=== PATIENT | male | born 1955 | race Caucasian/White ===

== ENCOUNTER 2022-05-29 08:56 | Outpatient (RCR) | payer MEDICARE, SELFPAY ==
--- NOTE | 2022-05-29 10:08 | PTOPEVAL1 ---
Assessment and note entered by JT File, PT Evaluation Information Assessment Status Evaluation Diagnosis L knee arthroscopy Onset 03/01/22 Subjective Information patient reports he injured his L knee back on 02/13. he reports he was lifting a box and his knee moved in a different direction than his body. 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 he reports he had a meniscus tear that was removed via scope on . he reports since surgery it has felt too good to be true. he reports he was on post op norco yesterday after surgery. he reports he has since stopped and is only on tylenol. Reported Pain Level Pain Score 1: Self Report Assessment PT Clinical Summary mr. campos presents to skilled PT 1 day post op L knee arthroscopy. he presents this date with post operative swelling, antaligic gait, decreased strength, and decreased rom compared to the R knee . he was educated this date in exercises for quad strengt/contraction and knee rom. he was given and HEP and education on plan moving forward for continued skilled PT. patient is an excellent candidate for skilled PT, and will likely return to prior level activities without limitations in 2 -3 weeks. Plan of Care Interventions Gait Training,Hot Pack/Cold Pack,Intermittent Compression,Manual Therapy,Neuro Re-education, Patient/Caregiver Educati,Therapeutic Activities, Therapeutic Exercise PT Services Indicated Yes Treatment Frequency and 2x weekly for 6 visits Duration These treatments will address the objective and functional deficits as defined above. The patient will be advanced safely and appropriately in order for the patient to progress towards his/her prior level of function. Additional exercises will be introduced and as well as a comprehensive home exercise program upon discharge, if needed, ?to ensure carryover of functional gains achieved in the clinic. This treatment plan has been reviewed and agreement upon by the patient.
== END 2022-06-22 14:42 | disposition home or self-care (01) ==
LOC: CHSPT 08:56
DX: Z98.890 Other specified postprocedural states (principal)
CPT/HCPCS: 97014; 97016; 97110; 97161; 97530; G0283

== ENCOUNTER 2022-10-26 13:29 | Emergency (ER) | payer MEDICARE, SELFPAY ==
[2022-10-26] VITALS (57 sets, daily range): BP systolic 98–175; BP diastolic 75–100; PULSE 90–164; RESP 10–21; TEMP 36.5–36.7; O2SAT 87–100
--- NOTE | ~2022-10-26 | XR_ITS ---
EXAMINATION: XR chest 1V portable INDICATION: Chest pain TECHNIQUE: Portable AP chest at 1413 hours COMPARISON: 12/05/2018 FINDINGS: There is mild chronic atelectasis of the lung bases. No pleural effusion or pneumothorax. T he cardiomediastinal silhouette is normal. There is moderate to severe osteoarthritis of the right gl enohumeral joint. IMPRESSION: 1. No acute cardiopulmonary abnormality. Reviewed, dictated and finalized at location B.
--- NOTE | 2022-10-26 13:32 | ECG_ITS ---
Measurements Intervals [place] Rate: 134 P: [place]: 0 QRS: 26 QRSD: 94 T: 55 QT: 299 QTc: 448 Interpretive Statements ATRIAL FLUTTER/TACHYCARDIA WITH RAPID VENTRICULAR RESPONSE WITH ABERRANT CONDUCTION OR VENTRICULAR PREMATURE COMPLEXES NONSPECIFIC ST & T-WAVE ABNORMALITY ABNORMAL RHYTHM ECG NO PREVIOUS ECG AVAILABLE FOR COMPARISON Electronically Signed On 10-28-2022 13:56:52 CDT by Guerrero Lui M.D.
--- NOTE | 2022-10-26 13:45 | ED.GENADULT ---
HPI - General Adult General Chief complaint: Chest Pain Stated complaint: CHEST PAIN Time Seen by Provider: 10/26/22 13:32 History of Present Illness HPI narrative: Guillermo is a 67M with a PMH of hypothyroidism, asthma and rosacea that presented to the ED after an episode of chest pain. He was working in the yard very hard when he had an episode of chest pain and dyspnea. He took an aspirin and his inhaler. It did improve some with rest but he still had a little chest pain and dizziness so he came in. There was no nausea or vomiting or syncope. Related Data Home Medications Medication Instructions Recorded Confirmed colchicine 0.6 mg capsule 0.6 mg PO BID 10/26/22 10/26/22 (Mitigare) fluticasone propionate 110 1 puff inhalation BID 10/26/22 10/26/22 mcg/actuation HFA aerosol inhaler (Flovent HFA) levothyroxine 175 mcg tablet 175 mcg PO DAILY 10/26/22 10/26/22 montelukast 10 mg tablet 10 mg PO DAILY 10/26/22 10/26/22 Allergies Allergy/AdvReac Type Severity Reaction Status Date / Time erythromycin base Allergy Rash Verified 10/26/22 13:42 Review of Systems Review of Systems: All systems reviewed & are unremarkable except as noted in HPI and below PMFSH Family History Family History (Updated 10/26/22 @ 19:50 by Mello Chaudhry RN) Father Diabetes mellitus Mother Hypertension Social History Social History Smoking status: Never smoker Alcohol intake: current Substance use: never Lack of Transportation: No Lack of Food: Never True Current Housing: I Have Housing Concerned About Future Housing: No Difficulty Paying Gas/Electric Bills: No Difficulty Paying for Meds: No Currently Unemployed: No Education: High School Diploma/GED Difficulty w/ Childcare or Family Care: No Spiritual care concerns: No Exam Const: General: healthy appearing, no acute distress and alert Nutritional Appearance: well nourished Orientation/consciousness: patient oriented x3 HENMT: Head: normal to inspection Ears: external ears normal Eyes: Conjunctivae: conjunctivae normal Pupils: Equal, round and reactive pupils present Neck: Neck: normal visual inspection Chest: Chest palpation & inspection: normal inspection of the chest Resp: Effort & Inspection: normal respiratory effort Auscultation: clear to auscultation bilaterally Cardio: Rate: tachycardic Rhythm: abnormal rhythm irregularly irregular GI: Inspection: non-distended Auscultation: normal bowel sounds Skin: General skin exam: normal color Rashes: no rashes Neuro: General: patient oriented x3 and moves all extremities Cranial nerves: Yes Nystagmus not present Extrem: General: normal to inspection Psych: Mental Status: mental status grossly normal Course Course Emergency Course: Ordered EKG, CXR, and labs. EKG showed atrial flutter with a rate of 134, normal axis, PVCs and non-specific and flipped T waves in III EXAMINATION: XR chest 1V portable INDICATION: Chest pain TECHNIQUE: Portable AP chest at 1413 hours COMPARISON: 12/05/2018 FINDINGS: There is mild chronic atelectasis of the lung bases. No pleural effusion or pneumothorax. The cardiomediastinal silhouette is normal. There is moderate to severe osteoarthritis of the right glenohumeral joint. IMPRESSION: 1. No acute cardiopulmonary abnormality. He was started on a diltiazem drip and it was titrated up to 15 with no effect so digoxin was started. Digoxin also brought little effect. [facility] was contacted for transfer to a higher level of care and cardiology consult Vital Signs Vital signs: Vital Signs Temperature 97.9 F 10/26/22 13:30 Pulse Rate 144 H 10/26/22 13:30 Respiratory Rate 18 10/26/22 13:30 Blood Pressure 122/87 10/26/22 13:30 Pulse Oximetry 98 10/26/22 13:30 Oxygen Delivery Room Air 10/26/22 13:30 Temperature 97.7 F 10/26/22 18:30 Pulse Rate 98 10/26/22 18
[2022-10-26 13:48] LABS: Basophils Absolute Auto 0.07 K/mm3 (0.00-0.10); Basophils Percent Auto 0.5 % (0.0-1.0); Eosinophils Absolute Auto 0.14 K/mm3 (0.02-0.50); Eosinophils Percent Auto 1.1 % (1.0-6.0); Hematocrit 47.6 % (37.0-46.0); Hemoglobin 16.1 g/dL (12.4-15.3); Immature Granulocyte Absolute 0.11 K/mm3 (0.00-0.00); Immature Granulocyte Percent A 0.9 % (0.0-0.0); Lymphocytes Absolute Auto 2.56 K/mm3 (1.10-4.50); Lymphocytes Percent Auto 19.8 % (18.0-42.0); Mean Corpuscular HGB Conc 33.8 g/dL (32.0-36.0); Mean Corpuscular Hemoglobin 31.2 pg (27.0-31.0); Mean Corpuscular Volume 92.2 fL (78.0-102.0); Mean Platelet Volume 12.3 fl (8.7-11.0); Monocytes Absolute Auto 1.37 K/mm3 (0.10-0.90); Monocytes Percent Auto 10.6 % (2.0-11.0); Neutrophils Absolute Auto 8.7 K/mm3 (1.7-7.2); Neutrophils Percent Auto 67.1 % (50.0-70.0); Platelet Count Result 186 K/mm3 (150-420); Red Blood Count 5.16 M/mm3 (4.70-6.10); Red Cell Distribution Width 13.2 % (11.6-14.4); White Blood Count 12.9 K/mm3 (4.8-10.8)
[2022-10-26] MEDS: dilTIAZem HCl INJ 25 MG/5 ML VIAL 10 MG IV PUSH (14:00)
[2022-10-26 14:01] LABS: INR 0.9; Prothrombin Time 10.4 Seconds (9.50-12.10)
[2022-10-26] MEDS: dilTIAZem 100 MG/100 ML 100 MG/100 ML BAG IV CONT (14:02)
[2022-10-26 14:09] LABS: Magnesium 1.7 mg/dL (1.8-2.4)
[2022-10-26 14:10] LABS: Troponin I 28.8 ng/L (0.00-60.4)
[2022-10-26 14:14] LABS: Alanine Aminotransferase 50 U/L (16-63); Albumin Level 3.7 g/dL (3.4-5.0); Alkaline Phosphatase 70 U/L (46-116); Anion Gap 11 mmol/L (8-16); Aspartate Amino Transferase 36 U/L (15-37); Bilirubin,Total 1.6 mg/dL (0.00-1.00); Blood Urea Nitrogen 14 mg/dL (7-18); Calcium 8.9 mg/dL (8.5-10.1); Carbon Dioxide 26 mmol/L (21-32); Chloride 107 mmol/L (98-108); Estimated CRCL calculation 66 ml/min; Estimated Glomerular Filt Rate 57; Glucose 149 mg/dL (70-99); NT Pro B Type Natriuretic Pept 238 pg/mL (0-125); Osmolality Calculated 301 mOsm/kg (285-295); Potassium 3.3 mmol/L (3.5-5.1); Sodium 144 mmol/L (136-145); Total Protein 7.3 g/dL (6.4-8.2)
[2022-10-26 14:16] LABS: Thyroid Stimulating Hormone 2.46 uIU/mL (0.36-3.74)
[2022-10-26] MEDS: MAGNESIUM SULF 2 GM/WATER 50ML 2 GM/50 ML BAG IVPB (15:05)
[2022-10-26] MEDS: DIGOXIN INJ 250 MCG/ML 2 ML AMP (*BKC) 500 MCG IV PUSH (15:41)
== END 2022-10-26 18:43 | disposition short-term general hospital (02) ==
PROVIDERS: Emergency Provider Family Medicine; PCP Internal Medicine
DX: I48.91 Unspecified atrial fibrillation (principal); R06.00 Dyspnea, unspecified; E03.9 Hypothyroidism, unspecified; J45.909 Unspecified asthma, uncomplicated
CPT/HCPCS: 36415; 71045; 80053; 83735; 83880; 84443; 84484; 85025; 85610; 93005; 96365; 96366; 96368; 96375; 99285; J1160; J3475

== ENCOUNTER 2022-10-26 20:53 | Inpatient (IN) | payer MEDICARE, SELFPAY ==
[2022-10-26 19:33] VITALS: BMI 34.6
--- NOTE | 2022-10-26 19:38 | ADMGEN ---
This patient, Yash Feldman, was admitted to IMU Room 201-01. Patient/family oriented to hospital policies and general routines including ID bracelet, bed and alarms, visiting hours, pain management, procedures, bathroom and other care routines, personal items, smoking policy, room service/diet, and visiting hours. Information on how to activate the Rapid Response Team has been discussed. Patient/Family are encouraged to report perceived risks to care and to ask questions if they do not understand what they are told or what they should do.
[2022-10-26 19:43] VITALS: BP 115/79; PULSE 136; RESP 22; TEMP 36.7; O2SAT 99
[2022-10-26 19:45] VITALS: BMI 31.9
[2022-10-26 20:00] VITALS: PULSE 102
[2022-10-26 20:17] VITALS: BP 115/79; PULSE 137
[2022-10-26] MEDS: dilTIAZem 100 MG/100 ML 100 MG/100 ML BAG IV CONT (20:17)
[2022-10-26] MEDS: ACETAMINOPHEN 325 MG TABLET 650 MG PO (21:09)
[2022-10-26 21:20] VITALS: PULSE 120
--- NOTE | 2022-10-26 21:45 | PM.IMHP ---
H&P: HPI History of Present Illness Date/Time: 10/26/22 21:45 Chief Complaint: Chest pain Narrative: This is a 67-year-old male patient with a history of hypothyroidism asthma and rosacea. The patient went to [facility] with complaints of chest pain. 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 The patient had an episode of chest pain and dyspnea. The patient took an aspirin and used his inhaler. The chest pain did not improve with rest and he still had some chest pain and dizziness as well. He denies any nausea vomiting or diarrhea. The pain did not radiate anywhere. The patient has no previous heart history or any arrhythmias. His white count was noted to be 12.9. H&H is 16.1 and 47.6. His potassium was found to be 3.3. Glucose 149. Magnesium 1.7. Troponin x2 was nonreactive. EKG was read as atrial flutter with RVR heart rate 130s. The patient was started on a Cardizem drip. The patient had been up to Cardizem drip up to 15 and was also given digoxin. Chest x-ray was read as no acute cardiopulmonary abnormality. The patient is being admitted to observation status on the date of service of 10/26/2022. Review of Systems Review of Systems: All systems reviewed & are unremarkable except as noted in HPI and below Constitutional: Constitutional: Reports as per HPI and Reports no additional constitutional complaints Eyes: Eyes: Reports as per HPI and Reports no additional eye complaints ENT: Reports system reviewed and no additional complaints, except as documented and Reports Normal hearing present Cardiovascular: Cardiovascular: Reports no additional cardiovascular complaints Respiratory: Respiratory: Reports no additional respiratory complaints and Reports no additional respiratory complaints Gastrointestinal: Gastrointestinal: Reports as per HPI and Reports no additional gastrointestinal complaints Musculoskeletal: Musculoskeletal: Reports no additional musculoskeletal complaints Integumentary/Breasts: Skin/Breast: Reports system reviewed and no additional complaints, except as docu and Reports as per HPI Neurologic: Reports system reviewed and no additional complaints, except as documented, Reports as per HPI and Reports Normal hearing present Psychiatric: Psychiatric: Reports no additional psychiatric complaints and Reports as per HPI Endocrine: Endocrine: Reports no additional endocrine complaints Hematologic/Lymphatic: Hematologic/Lymphatic: Reports no additional hematologic/lymphatic complaints Allergic/Immunologic: Allergic/Immunologic: Reports no additional allergic/immunologic complaints [facility] Past Medical History Medical History (Updated 10/27/22 @ 01:11 by Eun Randhawa NP) Asthma Hypothyroidism Surgical History Surgical History (Updated 10/27/22 @ 01:05 by Eun Randhawa NP) H/O Achilles tendon repair Left H/O knee surgery Left H/O shoulder surgery Right Family History Family History (Updated 10/27/22 @ 01:06 by Eun Randhawa NP) Father Diabetes mellitus Liver cancer Mother Hypertension Social History Social History (Updated 10/27/22 @ 01:07 by Eun Randhawa NP) Social History: The patient has a significant other. He has 1 child. 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 Code status full code Smoking status: Never smoker Alcohol intake: current Substance use: never Lack of Transportation: No Lack of Food: Never True Current Housing: I Have Housing Concerned About Future Housing: No Difficulty Paying Gas/Electric Bills: No Difficulty Paying for Meds: No Currently Unemployed: No Education: High School Diploma/GED Difficulty w/ Childcare or Family Care: No Spiritual care concerns: No Meds Home Medications and Allergies Home Medications Medication Instructions Recorded Confirmed Type colchicine 0.6 mg capsule 0.6 mg PO BID 10/26/22 10/26/22 His
[2022-10-26 21:58] LABS: Troponin I 0.032 ng/mL (0.000-0.034)
[2022-10-26 22:00] VITALS: PULSE 112
[2022-10-26 22:12] VITALS: BP 104/57
[2022-10-27] VITALS (20 sets, daily range): BP systolic 96–113; BP diastolic 59–78; PULSE 59–140; RESP 20–22; TEMP 36.2–37.1; O2SAT 96–100
--- NOTE | 2022-10-27 | ECHO_ITS ---
Patient Info Name: Yash Feldman Age: 67 years : 1955 Gender: Male Ht: 73 in Wt: 255 lbs BSA: 2.48 m2 HR: 97 bpm BP: 105 / 72 mmHg Heart Rhythm: Atrial Fibrillation, Tachycardia Technical Quality: Fair Exam Date: 10/27/2022 11:04 AM Exam Location: [facility] Card Pulmonary Patient Status: Inpatient Admit Date: 10/27/2022 Staff Ordering Physician: Eun Randhawa NP Machine Stuffer Automatic: Olya Herrera RDCS Attending Provider: Heather Ding DO Referring Physician: Sydnee SCHUMACHER; Exam Type: CA echo dop color flow w con Study Info Indications - new onset afib Complete two-dimensional, color flow and Doppler transthoracic echocardiogram is performed with contrast to opacify the left ventricle and to improve the deliniation of the left ventricle endocardial borders. Contrast/Agitated Saline Contrast/Ag. Saline: Definity Amount: 3.00 ml Administered By: Olya Herrera RDCS Existing IV Access: Yes IV Access Condition: patent with no signs of infiltration Summary 1. Left ventricular chamber dimension is normal. 2. Left ventricular systolic function is normal, estimated at 50-55%. 3. Right ventricular systolic function is normal. 4. There is moderate aortic valve calcification. 5. There is mild to moderate aortic valve stenosis with a peak velocity of 287.05 cm/s, mean gradient of 17 mmHg, and aortic valve area of 1.15 cm2. 6. There is mild aortic valve regurgitation. 7. There is mild tricuspid valve regurgitation. 8. The aortic root size at the sinus of Valsalva is dilated. Left Ventricle Left ventricular chamber dimension is normal. Left ventricular systolic function is normal, estimated at 50-55%. Right Ventricle Right ventricular chamber dimension is normal. Right ventricular systolic function is normal. Left Atria Left atrial chamber dimension is normal. Right Atria Right atrial chamber dimension is normal. Atrial Septum Intact interatrial septum visualized by color flow imaging. Aortic Valve The aortic valve is not well visualized. There is mild to moderate aortic valve stenosis with a peak velocity of 287.05 cm/s, mean gradient of 17 mmHg, and aortic valve area of 1.15 cm2. There is mild aortic valve regurgitation. There is moderate aortic valve calcification. Pulmonic Valve The pulmonic valve is not well visualized. Mitral Valve There is no mitral valve stenosis. There is trace mitral valve regurgitation. Tricuspid Valve There is mild tricuspid valve regurgitation. Pericardium/Pleural The pericardium appears epicardial fat pad. There is trivial pericardial effusion. Aorta The aortic root size at the sinus of Valsalva is dilated. Left Ventricular Outflow Tract Name Value Normal LVOT 2D LVOT Diameter 2.04 cm LVOT Doppler LVOT Peak Gradient 4 mmHg LVOT Mean Gradient 2 mmHg LVOT VTI 17.57 cm LVOT VTI/AV VTI Ratio 0.35 LVOT Stroke Volume 57.63 ml LVOT CO
[2022-10-27 02:03] LABS: Troponin I 0.025 ng/mL (0.000-0.034)
[2022-10-27] MEDS: ENOXAPARIN 120 MG/0.8 ML SYRINGE 116 MG SUB-Q ×2 (02:12→09:15)
[2022-10-27 03:20] LABS: Basophils Absolute Auto 0.1 K/mm3 (0.0-0.1); Basophils Percent Auto 0.6 % (0.2-1.2); Eosinophils Absolute Auto 0.2 K/mm3 (0-0.3); Eosinophils Percent Auto 1.8 % (0-4.4); Hematocrit 46.6 % (42.0-52.0); Hemoglobin 15.8 g/dL (14.0-18.0); Immature Granulocyte Absolute 0.08 K/mm3 (0.00-0.031); Immature Granulocyte Percent A 0.7 % (0-0.5); Lymphocytes Absolute Auto 2.98 K/mm3 (0.9-3.2); Mean Corpuscular HGB Conc 33.9 g/dl (32-36); Mean Corpuscular Hemoglobin 31.4 pg (26-34); Mean Corpuscular Volume 92.6 fl (80-100); Mean Platelet Volume 11.8 fl (7.4-10.4); Monocytes Absolute Auto 1.4 K/mm3 (0.1-0.6); Monocytes Percent Auto 12.3 % (2.6-8.5); Neutrophils Absolute Auto 6.3 K/mm3 (1.3-6.7); Neutrophils Percent Auto 57.6 % (45.5-73.1); Platelet Count Result 190 k/mm3 (150-375); Red Blood Count 5.03 M/mm3 (4.6-6.20); Red Cell Distribution Width 13.7 % (11.5-14.5)
[2022-10-27 03:44] LABS: Alanine Aminotransferase 37 U/L (6-50); Albumin Level 3.7 g/dL (3.5-5.1); Alkaline Phosphatase 54 U/L (38-126); Anion Gap 6 mmol/L (8-16); Aspartate Amino Transferase 37 U/L (17-59); Bilirubin,Total 2.2 mg/dL (0.2-1.3); Blood Urea Nitrogen 14 mg/dL (9-20); Calcium 8.3 mg/dL (8.4-10.2); Carbon Dioxide 27 mmol/L (22-30); Chloride 106 mmol/L (98-107); Estimated CRCL calculation 109 ml/min; Estimated Glomerular Filt Rate > 60; Glucose 109 mg/dL (65-110); Magnesium 2.1 mg/dL (1.6-2.3); Potassium 3.6 mmol/L (3.4-5.0); Sodium 139 mmol/L (137-145)
[2022-10-27 03:46] LABS: Troponin I 0.021 ng/mL (0.000-0.034)
[2022-10-27] MEDS: dilTIAZem 100 MG/100 ML 100 MG/100 ML BAG 10 MG IV CONT (05:56)
[2022-10-27] MEDS: ACETAMINOPHEN 325 MG TABLET 650 MG PO (05:57)
--- NOTE | 2022-10-27 07:59 | PCRCNOTE ---
Patient is scheduled Flovent inhaler Q12 and does not wish to be scheduled. Refused 0800 inhaler, RN notified
[2022-10-27] MEDS: POTASSIUM CHLORIDE 20 MEQ TABLET 40 MEQ PO (09:14)
[2022-10-27] MEDS: PERFLUTREN LIPID MICROSPHERES 1.5 ML VIAL DILUTED TO 10 ML TOTAL VOLUME IV PUSH (11:46)
--- NOTE | 2022-10-27 11:46 | IVDEFINITY ---
Prior to administration of IV Definity the patient was educated on the risks and benefits of the imaging enhancing agent including potential adverse side effects. The patient verbalized understanding. Allergies were verified. No exclusion criteria were identified and at least one of the following inclusion criteria were met: 1) physician request, 2) patient technically difficult to image (per the [place] [employer]chocardi[employer] guidelines of two or more segments not discernable within the apical view), or 3) questionable left ventricular function. ?
--- NOTE | 2022-10-27 13:38 | PM.CNCAR ---
Assessment and Plan Assessment and plan (1) Atrial flutter: Code(s): I48.92 - Unspecified atrial flutter Status: Acute Assessment and Plan: Will stop Diltazem drip and switch to PO Metoprolol. TSH normal. Discussed with patient regarding the treatment options and recommended SALVADOR/DCCV. Patient agreeable to SALVADOR/DCCV. Will plan for SALVADOR/DCCV on 10/28. Patient to be NPO at midnight. Will switch his Lovenox to Eliquis. Will need an outpatient sleep study. Will have patient follow up with us in clinic after hospital discharge. [id number] is 1 for his age. He will not require long-term anticoagulation for stroke prophylaxis, but will need to remain on anticoagulation for 30 days following cardioversion. (2) Hypothyroidism: Code(s): E03.9 - Hypothyroidism, unspecified Status: Acute Assessment and Plan: TSH normal. History of Present Illness History of Present Illness Consult date/time: 10/27/22 13:38 Requesting physician: Eun Randhawa NP Consult reason: Other (Atrial flutter) Reason For Visit: Atrial Flutter Narrative: We are consulted for atrial flutter with RVR. This is a 67-year-old male with a history of hypothyroidism, asthma, and rosacea who presented with chest pain and shortness of breath while doing some heavy lifting. EKG showed atrial flutter with RVR. Troponins negative. Patient sent from [facility] to here for further evaluation. Patient was started on Cardizem drip on admission along with dose of Digoxin however has remained in atrial flutter/fibrillation. No prior cardiac history. No history of hypertension, diabetes. Review of Systems Review of Systems: All systems reviewed & are unremarkable except as noted in HPI and below (HPI) FORMERLY [facility], [facility] Past Medical History Medical History Asthma Hypothyroidism Surgical History Surgical History H/O Achilles tendon repair Left H/O knee surgery Left H/O shoulder surgery Right Family History Family History Father Diabetes mellitus Liver cancer Mother Hypertension Social History Social History Social History: The patient has a significant other. He has 1 child. 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 status full code Smoking status: Never smoker Alcohol intake: current Substance use: never Lack of Transportation: No Lack of Food: Never True Current Housing: I Have Housing Concerned About Future Housing: No Difficulty Paying Gas/Electric Bills: No Difficulty Paying for Meds: No Currently Unemployed: No Education: High School Diploma/GED Difficulty w/ Childcare or Family Care: No Spiritual care concerns: No Meds Home Medications and Allergies Home Medications Medication Instructions Recorded Confirmed Type colchicine 0.6 mg capsule 0.6 mg PO BID 10/26/22 10/26/22 History (Mitigare) fluticasone propionate 110 1 puff inhalation BID 10/26/22 10/26/22 History mcg/actuation HFA aerosol inhaler (Flovent HFA) levothyroxine 175 mcg tablet 175 mcg PO DAILY 10/26/22 10/26/22 History montelukast 10 mg tablet 10 mg PO DAILY 10/26/22 10/26/22 History Allergies Allergy/AdvReac Type Severity Reaction Status Date / Time erythromycin base Allergy Rash Verified 10/26/22 13:42 Vital Signs Vital Signs - 24 hr 10/26/22 19:43 10/26/22 20:17 10/26/22 22:12 Temperature 36.7 C Pulse Rate 136 H 137 H Respiratory Rate 22 H Blood Pressure 115/79 115/79 104/57 L Pulse Oximetry 99 Oxygen Delivery 10/26/22 20:00 10/26/22 20:00 10/26/22 22:00 Temperature Pulse Rate 102 H 112 H Respiratory Rate Blood Pressure Pulse Oximetry Oxygen Delivery Room Air 10/26/22 21:20 10/27/22 00:00 10/27/22 00:00 Temp
--- NOTE | 2022-10-27 14:19 | PM.IMPN ---
Progress Note: A&P Assessment and Plan (1) Atrial flutter: Code(s): I48.92 - Unspecified atrial flutter Status: Acute Assessment and Plan: Cardiology consult greatly be appreciated. An echo has been ordered Patient is currently on a Cardizem drip. Patient's blood pressure is soft. He was given digoxin x1 at [facility]. I am not able to give metoprolol at this time is his blood pressure is soft. Patient's heart rate appears to be in the 80s now. Initially was in the 130. Subcu Lovenox has been ordered although it appears to be a large amount may consider subcu heparin. Troponins have been negative so far. Check magnesium level Check thyroid level 10/27/2022 interval history: 67-year-old male presented with a chest pain is found to have atrial fibrillation with RVR patient was started on diltiazem drip seen by cardiology rate and rhythms are not tender controlled recommended SALVADOR guided cardioversion scheduled for tomorrow, patient is clinically stable will continue to monitor and further recommendation to follow. (2) Asthma: Code(s): J45.909 - Unspecified asthma, uncomplicated Status: Acute Assessment and Plan: Continue with Singulair. (3) Hypothyroidism: Code(s): E03.9 - Hypothyroidism, unspecified Status: Acute Assessment and Plan: Check thyroid level continue with levothyroxine. Subjective Date/time seen: 10/27/22 14:19 Chest pain HPI-Narrative: This is a 67-year-old male patient with a history of hypothyroidism asthma and rosacea.? The patient went to [facility] with complaints of chest pain.? 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 The patient had an episode of chest pain and dyspnea.? The patient took an aspirin and used his inhaler.? The chest pain did not improve with rest and he still had some chest pain and dizziness as well.? He denies any nausea vomiting or diarrhea.? The pain did not radiate anywhere.? The patient has no previous heart history or any arrhythmias.? His white count was noted to be 12.9.? H&H is 16.1 and 47.6.? His potassium was found to be 3.3.? Glucose 149.? Magnesium 1.7.? Troponin x2 was nonreactive.? EKG was read as atrial flutter with RVR heart rate 130s.? The patient was started on a Cardizem drip.? The patient had been up to Cardizem drip up to 15 and was also given digoxin.? Chest x-ray was read as no acute cardiopulmonary abnormality.? The patient is being admitted to observation status on the date of service of 10/26/2022. 10/27/2022 interval history: 67-year-old male presented with a chest pain is found to have atrial fibrillation with RVR patient was started on diltiazem drip seen by cardiology rate and rhythms are not tender controlled recommended SALVADOR guided cardioversion scheduled for tomorrow, patient is clinically stable will continue to monitor and further recommendation to follow. Review of Systems Review of Systems: All systems reviewed & are unremarkable except as noted in HPI and below Exam Narrative: Patient is comfortable, NAD HEENT: eyes are clear and none icteric LUNGS: Normal respiratory effort HEART: Irregularly irregular ABD: Distended Lower extremities: no edema SKIN: nonjaundiced Neuro: grossly intact. Objective Data Vital Signs Vital Signs: Vital Signs - 24 hr 10/26/22 19:43 10/26/22 20:17 10/26/22 22:12 Temperature 98.1 F Pulse Rate 136 H 137 H Respiratory Rate 22 H Blood Pressure 115/79 115/79 104/57 L Pulse Oximetry 99 Oxygen Delivery 10/26/22 20:00 10/26/22 20:00 10/26/22 22:00 Temperature Pulse Rate 102 H 112 H Respiratory Rate Blood Pressure Pulse Oximetry Oxygen Delivery Room Air 10/26/22 21:20 10/27/22 00:00 10/27/22 00:00 Temperature 98.7 F Pulse Rate 120 H 101 H Respiratory Rate 22 H Blood Pressure 106/70 Pulse Oximetry 100 Oxygen Delivery Room Air 10/27/22 00:00
[2022-10-27] MEDS: METOPROLOL TARTRATE 50 MG TAB PO ×2 (14:32→21:22)
[2022-10-27] MEDS: APIXABAN 5 MG TABLET PO (21:22)
[2022-10-27] MEDS: LEVOTHYROXINE SODIUM 75 MCG TABLET PO (21:22)
[2022-10-27] MEDS: LEVOTHYROXINE SODIUM 100 MCG TABLET PO (21:22)
[2022-10-27] MEDS: MONTELUKAST SODIUM 10 MG TABLET PO (21:23)
[2022-10-28] VITALS (13 sets, daily range): BP systolic 102–125; BP diastolic 61–104; PULSE 71–136; RESP 12–21; TEMP 36.1–36.3; O2SAT 94–99
--- NOTE | 2022-10-28 | ECG_ITS ---
Measurements Intervals [place] Rate: 76 P: 21 NV: 183 QRS: -4 QRSD: 98 T: 19 QT: 374 QTc: 421 Interpretive Statements SINUS RHYTHM NORMAL ECG COMPARED TO ECG 10/28/2022 09:56:05 SINUS RHYTHM NOW PRESENT Electronically Signed On 10-28-2022 13:53:34 CDT by Guerrero Lui M.D.
--- NOTE | 2022-10-28 | ECG_ITS ---
Measurements Intervals [place] Rate: 137 P: SD: 0 QRS: -6 QRSD: 102 T: 21 QT: 287 QTc: 435 Interpretive Statements ATRIAL FLUTTER/TACHYCARDIA WITH RAPID VENTRICULAR RESPONSE ABNORMAL RHYTHM ECG COMPARED TO ECG 10/26/2022 13:45:05 NO SIGNIFICANT CHANGES Electronically Signed On 10-28-2022 13:51:15 CDT by Guerrero Lui M.D.
[2022-10-28 04:36] LABS: Hematocrit 48.9 % (42.0-52.0); Hemoglobin 16.1 g/dL (14.0-18.0); Mean Corpuscular HGB Conc 32.9 g/dl (32-36); Mean Corpuscular Hemoglobin 30.8 pg (26-34); Mean Corpuscular Volume 93.5 fl (80-100); Mean Platelet Volume 12.9 fl (7.4-10.4); Platelet Count Result 199 k/mm3 (150-375); Red Blood Count 5.23 M/mm3 (4.6-6.20); Red Cell Distribution Width 13.7 % (11.5-14.5)
[2022-10-28 04:51] LABS: Anion Gap 7 mmol/L (8-16); Blood Urea Nitrogen 16 mg/dL (9-20); Calcium 8.6 mg/dL (8.4-10.2); Carbon Dioxide 26 mmol/L (22-30); Chloride 105 mmol/L (98-107); Estimated CRCL calculation 96 ml/min; Estimated Glomerular Filt Rate > 60; Glucose 101 mg/dL (65-110); Magnesium 2.1 mg/dL (1.6-2.3); Sodium 138 mmol/L (137-145)
[2022-10-28] MEDS: FLUTICASONE PROP 110 MCG INHALER 12 GM (*SP) 1 PUFF INHALATION (07:05)
[2022-10-28] MEDS: METOPROLOL TARTRATE 50 MG TAB PO (09:36)
[2022-10-28] MEDS: APIXABAN 5 MG TABLET PO (09:36)
--- NOTE | 2022-10-28 11:34 | PM.PNCARD ---
Progress Note: A&P Assessment and Plan (1) Atrial flutter with rapid ventricular response: Code(s): I48.92 - Unspecified atrial flutter Status: Acute Assessment and Plan: Underwent SALVADOR-guided DCCV today with successful restorationist of sinus rhythm after 1 shock at 250 joules. Okay for patient to be discharged this afternoon. We will arrange follow up in our office. Please discharge patient on Eliquis and Metoprolol. Will need outpatient sleep study. [id number] is 1 for his age. He will not require long-term anticoagulation for stroke prophylaxis, but will need to remain on anticoagulation for 30 days following cardioversion. Recommendations discussed with the hospitalist, Dr. Jaffe, via phone. (2) Hypothyroidism: Code(s): E03.9 - Hypothyroidism, unspecified Status: Acute Assessment and Plan: TSH normal. Subjective Date/time seen: 10/28/22 11:34 Interval history: Reason for visit: Atrial flutter with RVR We are consulted for atrial flutter with RVR. This is a 67-year-old male with a history of hypothyroidism, asthma, and rosacea who presented with chest pain and shortness of breath while doing some heavy lifting. EKG showed atrial flutter with RVR. Troponins negative. Patient sent from [facility] to here for further evaluation. Patient was started on Cardizem drip on admission along with dose of Digoxin however has remained in atrial flutter/fibrillation. No prior cardiac history. No history of hypertension, diabetes. Date of service 10/28: No acute events overnight. EKG this morning with atrial flutter with RVR. Review of Systems Review of Systems: 8 point ROS obtained. Negative, unless stated in HPI. Exam Const: General: comfortable and no acute distress HENMT: Mouth: Yes moist mucous membranes Eyes: General: appearance normal, both eyes and all related structures Sclera: sclerae normal Neck: Neck: supple Resp: Effort & Inspection: normal respiratory effort Auscultation: clear to auscultation bilaterally Cardio: Rate: tachycardic Rhythm: regular rhythm Heart sounds: no murmurs GI: GI Palp: Yes Soft to palpation and No Tenderness to palpation present (GI) Skin: General skin exam: normal color Neuro: Speech: normal speech Extrem: General: normal to inspection Psych: Mental Status: mental status grossly normal Affect: normal affect Objective Data Vital Signs Vital Signs: Vital Signs - 24 hr 10/27/22 12:39 10/27/22 14:32 10/27/22 16:28 Temperature 36.7 C 36.3 C L Pulse Rate 78 79 67 Respiratory Rate 20 20 Blood Pressure 113/78 104/72 Pulse Oximetry 97 98 Oxygen Delivery Oxygen Flow Rate 10/27/22 12:00 10/27/22 16:00 10/27/22 12:00 Temperature Pulse Rate 140 H Respiratory Rate Blood Pressure Pulse Oximetry Oxygen Delivery Room Air Room Air Oxygen Flow Rate 10/27/22 14:00 10/27/22 16:00 10/27/22 18:00 Temperature Pulse Rate 95 59 L 68 Respiratory Rate Blood Pressure Pulse Oximetry Oxygen Delivery Oxygen Flow Rate 10/27/22 19:54 10/27/22 20:00 10/27/22 21:22 Temperature 36.3 C L Pulse Rate 69 69 81 Respiratory Rate 20 20 Blood Pressure 96/67 L Pulse Oximetry 99 99 Oxygen Delivery Room Air Oxygen Flow Rate 10/27/22 22:00 10/27/22 23:57 10/28/22 00:00 Temperature 36.1 C L Pulse Rate 73 73 75 Respiratory Rate 20 16 Blood Pressure 114/65 Pulse Oximetry 99 98 Oxygen Delivery Room Air Oxygen Flow Rate 10/28/22 00:00 10/28/22 02:00 10/28/22 04:00 Temperature 36.3 C L Pulse Rate 71 88 71 Respiratory Rate 18 Blood Pressure 108/74 Pulse Oximetry 96 Oxygen Delivery Oxygen Flow Rate 10/28/22 04:00 10/28/22 04:00 10/28/22 05:59 Temperature Pulse Rate 71 71 73 Respiratory Rate 18 Blood Pressure Pulse Oximetry 96 Oxygen Delivery Room Air Oxygen Flow Rate 10/28/22 08:00 10/28/22 09:36 10/28/22 08:00 Te
--- NOTE | 2022-10-28 11:38 | WPDTECDV ---
SALVADOR with Cardioversion Date of procedure: 10/28/22 Procedure Type: Date of Procedure: 10/28/2022 Brief History Of Present Illness: Patient is a pleasant 67 year old male who is referred for SALVADOR-guided DCCV for atrial flutter with RVR. Procedure In Detail: After verbal and written informed consent was obtained, the patient risks, benefits, and alternatives explained in detail. The patient agreed to proceed with the plan of care as outlined above.?The patient was evaluated at bedside in [facility].?The posterior oropharynx, neck, and jaw angle all within normal limits on examination. Lungs were clear to auscultation. See pre-sedation note for further details. The patient was then placed in the appropriate 30 to 45 degree angle supine position at a slight left lateral decubitus position.?Patient was monitored throughout the study with telemetry, oxygen saturation, end-tidal CO2 monitoring, blood pressure, heart rate, and respirations.? The posterior hypopharynx was then locally anesthetized using repeated administration of Hurricaine spray as well as gargled viscous lidocaine.? After local anesthetic of the posterior hypopharynx was achieved and the oral bite block placed, moderate sedation was administered.? After confirmation of adequate moderate sedation, the transesophageal echocardiogram probe was advanced through the oral bite block into the posterior hypopharynx and into the esophagus easily and without complication.? Multiple, multiplanar echocardiographic images were obtained in multiple standard re- projections.? At the conclusion of the study, the transesophageal echocardiogram probe was removed easily and without complication.? The patient tolerated the procedure well without difficulty. Synchronized cardioversion was then performed with defibrillator pads in an AP position. Sinus rhythm with restored with 1 shock at 250 joules. Moderate Sedation/Anesthesia administration: Patient reports no prior problems with sedation/anesthesia. Please see pre-sedation noted for physical examination documentation. As noted above, after adequate local anesthesia of the posterior hypopharynx was achieved, a total of 3mg intravenous Versed and a total of 100mcg intravenous Fentanyl in multiple divided doses was administered for moderate sedation.? Sedation start time was 11:14 and end time was 11:25 for a total intra-service/procedure face-face time of?11 minutes.? Sedation was administered by a qualified/certified observer Trice Benz RN under my supervision with intra-procedure [id number] observation and management throughout the entirety of the procedure.? There were no other issues or complications and patient tolerated the procedure well. See post-anesthesia documentation. FINDINGS: LEFT VENTRICLE: Size and systolic function were within normal limits. RIGHT VENTRICLE:? Size and systolic function within normal limits. LEFT ATRIUM: Normal size. RIGHT ATRIUM: Normal size. INTERATRIAL SEPTUM: ? Interatrial septum is anatomically normal MITRAL VALVE: ? Mitral valve is anatomically normal with preserved leaflet excursion AORTIC VALVE: The aortic valve is trileaflet with moderately sclerotic leaflets. TRICUSPID VALVE: Grossly normal. PULMONIC VALVE: Grossly normal LEFT ATRIAL APPENDAGE: Anatomically normal structure with prominent pectinate muscles without thrombus or vegetation identified. PERICARDIUM: The pericardium was anatomically normal without significant pericardial effusion. ? AORTA: Mid esophageal views of the aorta showed mild atherosclerotic disease. Complications: None This dictation may have been done utilizing a voice recognition system.? Attempts have been made to correct errors. However, there may be uncorrected grammatical, spelling, and recognition errors present.
--- NOTE | 2022-10-28 11:44 | WPDMODSED ---
Moderate Sedation Note-Pt Data Patient Data Diagnosis: Atrial flutter with RVR Present Complaint: Atrial flutter with RVR Procedure to be performed/Plan: SALVADOR guided cardioversion Allergies Allergy/AdvReac Type Severity Reaction Status Date / Time erythromycin base Allergy Rash Verified 10/26/22 13:42 Home Medications Medication Instructions Recorded Confirmed Type colchicine 0.6 mg capsule 0.6 mg PO BID 10/26/22 10/26/22 History (Mitigare) fluticasone propionate 110 1 puff inhalation BID 10/26/22 10/26/22 History mcg/actuation HFA aerosol inhaler (Flovent HFA) levothyroxine 175 mcg tablet 175 mcg PO DAILY 10/26/22 10/26/22 History montelukast 10 mg tablet 10 mg PO DAILY 10/26/22 10/26/22 History Current Medications: Active Medications Acetaminophen (Acetaminophen 325 Mg Tablet) 650 mg PO Q4H PRN PRN Reason: Headache Last Admin: 10/27/22 05:57 Dose: 650 mg Apixaban (Apixaban 5 Mg Tablet) 5 mg PO Q12HR [facility] Last Admin: 10/28/22 09:36 Dose: 5 mg Fentanyl Citrate (Fentanyl Citrate Inj (*Crx) 100 Mcg/2 Ml Vial) 100 mcg IV PUSH ONCE PRN PRN Reason: Cardioversion/SALVADOR Fluticasone Propionate (Fluticasone Prop 110 Mcg Inhaler 12 Gm (*Sp)) [facility] Last Admin: 10/28/22 07:05 Dose: 1 puff Levothyroxine Sodium (Levothyroxine Sodium 75 Mcg Tablet) 75 mcg PO [facility] Stop: 11/26/22 08:59 Last Admin: 10/27/22 21:22 Dose: 75 mcg Levothyroxine Sodium (Levothyroxine Sodium 100 Mcg Tablet) 100 mcg PO [facility] Last Admin: 10/27/22 21:22 Dose: 100 mcg Metoprolol Tartrate (Metoprolol Tartrate 50 Mg Tab) 50 mg PO Q12HR [facility] Last Admin: 10/28/22 09:36 Dose: 50 mg Midazolam HCl (Midazolam Hcl (*Crx) 2 Mg/2 Ml Vial) 2 mg IV PUSH Q5M PRN PRN Reason: Cardioversion/SALVADOR Montelukast Sodium (Montelukast Sodium 10 Mg Tablet) 10 mg PO [facility] Last Admin: 10/27/22 21:23 Dose: 10 mg Morphine Sulfate (Morphine Sulfate (*Crx) 2 Mg/Ml Inj) 2 mg IV PUSH Q4H PRN PRN Reason: Pain Rated 7-10 Ondansetron HCl (Ondansetron Inj 4 Mg/2 Ml Vial) 4 mg IV PUSH Q6H PRN PRN Reason: Nausea And Vomiting Sedation/Anesthesia: No previous sedation/anesthesia problems (including family history). [facility] Past Medical History Medical History Asthma Hypothyroidism Surgical History Surgical History H/O Achilles tendon repair Left H/O knee surgery Left H/O shoulder surgery Right Family History Family History Father Diabetes mellitus Liver cancer Mother Hypertension Social History Social History Social History: The patient has a significant other. He has 1 child. He is retired from [employer] is a [employer]. Code status full code Smoking status: Never smoker Alcohol intake: current Substance use: never Lack of Transportation: No Lack of Food: Never True Current Housing: I Have Housing Concerned About Future Housing: No Difficulty Paying Gas/Electric Bills: No Difficulty Paying for Meds: No Currently Unemployed: No Education: High School Diploma/GED Difficulty w/ Childcare or Family Care: No Spiritual care concerns: No Mod Sed Physical Exam Physical Exam Pre Procedural Exam: Normal: Appearance, Lungs, Neuro Exam, Abdomen, Extremities and Skin and Variation: Heart Rate (Atrial flutter) and Heart Rhythm (Atrial flutter) Hours since solid foods: 12 Hours since liquid intake: 8 Mallampati Classification: class III Internal Medicine - PN: Obj Da Vital Signs Vital Signs: Vital Signs - 24 hr 10/27/22 12:39 10/27/22 14:32 10/27/22 16:28 Temperature 36.7 C 36.3 C L Pulse Rate 78 79 67 Respiratory Rate 20 20 Blood Pressure 113/78 104/72 Pulse Oximetry 97 98 Oxygen Delivery Oxygen Flow Rate
--- NOTE | 2022-10-28 13:18 | PM.DS ---
DS: Admitting Diagnosis Discharge Date 10/28/2022 Admitting Diagnosis Chest pain DS: Discharge Diagnosis Discharge Diagnosis (1) Atrial flutter: Code(s): I48.92 - Unspecified atrial flutter Status: Acute Assessment and Plan: Cardiology consult greatly be appreciated. An echo has been ordered Patient is currently on a Cardizem drip. Patient's blood pressure is soft. He was given digoxin x1 at [facility]. I am not able to give metoprolol at this time is his blood pressure is soft. Patient's heart rate appears to be in the 80s now. Initially was in the 130. Subcu Lovenox has been ordered although it appears to be a large amount may consider subcu heparin. Troponins have been negative so far. Check magnesium level Check thyroid level 10/27/2022 interval history: 67-year-old male presented with a chest pain is found to have atrial fibrillation with RVR patient was started on diltiazem drip seen by cardiology rate and rhythms are not tender controlled recommended SALVADOR guided cardioversion scheduled for tomorrow, patient is clinically stable will continue to monitor and further recommendation to follow. (2) Asthma: Code(s): J45.909 - Unspecified asthma, uncomplicated Status: Acute Assessment and Plan: Continue with Singulair. (3) Hypothyroidism: Code(s): E03.9 - Hypothyroidism, unspecified Status: Acute Assessment and Plan: Check thyroid level continue with levothyroxine. DS: Summary Hospital Course Reason for hospitalization: Chest pain Narrative: This is a 67-year-old male patient with a history of hypothyroidism asthma and rosacea.? The patient went to [facility] with complaints of chest pain.? 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 The patient had an episode of chest pain and dyspnea.? The patient took an aspirin and used his inhaler.? The chest pain did not improve with rest and he still had some chest pain and dizziness as well.? He denies any nausea vomiting or diarrhea.? The pain did not radiate anywhere.? The patient has no previous heart history or any arrhythmias.? His white count was noted to be 12.9.? H&H is 16.1 and 47.6.? His potassium was found to be 3.3.? Glucose 149.? Magnesium 1.7.? Troponin x2 was nonreactive.? EKG was read as atrial flutter with RVR heart rate 130s.? The patient was started on a Cardizem drip.? The patient had been up to Cardizem drip up to 15 and was also given digoxin.? Chest x-ray was read as no acute cardiopulmonary abnormality.? The patient is being admitted to observation status on the date of service of 10/26/2022. Hospital Course: ?67-year-old male presented with a chest pain is found to have atrial fibrillation with RVR patient was started on diltiazem drip seen by cardiology rate and rhythms are not controlled recommended SALVADOR guided cardioversion scheduled for tomorrow, patient is clinically stable will continue to monitor and further recommendation to follow. Today patient was taken to cardiac laborer heading and had a DC cardioversion and was accessed patient is now on sinus rhythm, flea stable will discharge the patient today Time Spent with Patient Time attestation: Total time spent providing and/or coordinating discharge services: Exam Narrative: Patient is comfortable, NAD HEENT: eyes are clear and none icteric LUNGS: Normal respiratory effort HEART: Irregularly irregular ABD: Distended Lower extremities: no edema SKIN: nonjaundiced Neuro: grossly intact. DS: Data Data Completed and Pending Labs on day of discharge: Labs from last 24 hours 10/28/22 10/28/22 03:26 03:26 WBC 9.0 RBC 5.23 Hgb 16.1 Hct 48.9 MCV 93.5 MCH 30.8 MCHC 32.9 RDW 13.7 Plt Count 199 MPV 12.9 H Sodium 138 Potassium 4.0 Chloride 105 Carbon Dioxide 26 Anion Gap 7 L BUN 16 Creatinine 0.90 Estim Creat Clear Calc 96 Estimated GFR > 60 G
== END 2022-10-28 14:02 | disposition home or self-care (01) | DRG 310 ==
PROVIDERS: Internal Medicine; Nurse Practitioner; Admitting Provider Student in an Organized Health Care Education/Training Program; PCP Internal Medicine; Visit Provider Family Medicine
PROC: B24BZZ4 Ultrasonography of Heart with Aorta, Transesophageal (ICD-10-PCS; CPT 93312; principal; 2022-10-28 11:30)
PROC: 5A2204Z Restoration of Cardiac Rhythm, Single (ICD-10-PCS; 2022-10-28 11:30)
DX: I48.92 Unspecified atrial flutter (principal); E03.9 Hypothyroidism, unspecified; J45.909 Unspecified asthma, uncomplicated; L71.9 Rosacea, unspecified
CPT/HCPCS: 36415; 80048; 80053; 83735; 84443; 84484; 85025; 85027; 92960; 93005; 93312; 93320; 93325; 96365; 96366; 96372; 96375; A9270; C8929; G0378; J1650; J2250; J3010; J7040; Q9957